=== PATIENT | female | born 1945 | race Two or more races ===

== ENCOUNTER 2022-08-17 17:51 | Emergency (ER) | payer OTHER ==
[~2022-08-17] VITALS: Ht 167.6 cm; Wt 77.1 kg
== END 2022-08-17 21:36 | disposition home or self-care (01) ==
LOC: ER 17:51
DX: S01.01XA Laceration without foreign body of scalp, initial encounter (principal); W18.49XA Other slipping, tripping and stumbling without falling, initial encounter; Y93.89 Activity, other specified; Y92.22 Religious institution as the place of occurrence of the external cause

== ENCOUNTER 2022-08-27 11:17 | Emergency (ER) | payer OTHER ==
[~2022-08-27] VITALS: Ht 167.6 cm; Wt 77.1 kg
[2022-08-27] MEDS ORDERED: LEVOTHYROXINE100 MCG (11:53)
[2022-08-27] MEDS ORDERED: HIBICLENS118 ML TOP (14:34)
== END 2022-08-27 14:50 ==
LOC: ER 11:17
DX: Z48.02 Encounter for removal of sutures (principal)

== ENCOUNTER 2024-01-25 10:30 | Inpatient (IN) | payer OTHER ==
[~2024-01-25] VITALS: Ht 167.6 cm; Wt 0.9 kg
[~2024-01-25 10:30] MED LIST: HIBICLENS118 ML TOP; LEVOTHYROXINE100 MCG
[2024-01-25] MEDS ORDERED: FOSAMAX70 MG (10:39)
--- NOTE | 2024-01-25 10:39 | NUR ---
SE RECIBE PTE ALERTA Y ORINTADA X3, PTE ES UN TRANSFER DEL [facility] Y FUE ACEPTADO POR EL DR DUNN. PTE LLEGA EN AMBULANCIA CON UN [place] Y CANALIZACION EN EL BRAZO IZQ ANGIO #18. SE LE MIDEN SV Y SE UBICA.
--- NOTE | 2024-01-25 10:50 | NUR ---
FEMINA EVALUADA POR DR BOB. SE ORIENTA A PTE SOBRE ORDENES MEDICAS Y REFIERE ENTENDER. SE COLECTAN MUESTRAS DE LABORATORIO BAJO MEDIDAS ASEPTICAS. SE NOTIFICA X-RAY Y SE REALIZA EKG.
[2024-01-25] MEDS ORDERED: MEPERIDINE HCL/PF 50 MG/ML VIAL IM ONE (11:00)
[2024-01-25] MEDS ORDERED: PROMETHAZINE HCL 25 MG/ML AMPUL IM ONE (11:00)
[2024-01-25] MEDS ORDERED: PROMETHAZINE HCL 25 MG/ML AMPUL ONE (11:01)
[2024-01-25 11:04] LABS: HEMATOCRIT 37.9 % (36.0-45.00); HEMOGLOBIN 12.8 g/dL (12.0-15.00); MEAN CELL VOLUME 88.5 fL (80.00-100.00); MEAN CORPUSCULAR HEMOGLOBIN 29.9 pg (27.00-32.0); MEAN CORPUSCULAR HGB CONC 33.8 g/dl (32.0-36.0); PLATELET COUNT 180 K/uL (150-450); RED BLOOD COUNT 4.28 M/uL (4.00-6.00); RED CELL DISTRIBUTION WIDTH 13.8 % (11.5-14.5)
[2024-01-25] MEDS ORDERED: ENOXAPARIN SODIUM 60 MG/0.6 ML SYRINGE SUBCUTANEO ONE ×2 (11:07→11:15)
[2024-01-25 11:25] LABS: INR 1.08; PARTIAL THROMBOPLASTIN TIME 29.3 SECONDS (22.0-34.0); PROTHROMBIN TIME 11.3 SECONDS (9.0-11.5)
[2024-01-25 11:33] LABS: CALCIUM 8.8 mg/dL (8.5-10.1); CREATININE SERUM 0.74 mg/dL (0.55-1.02); GFR 75.9; POTASSIUM 3.86 mEq/L (3.5-5.1)
[2024-01-25 11:34] LABS: PH,URINE 7.5 (5.0-8.0); URINE APPEARANCE Clear; URINE BILIRRUBIN Negative (NEGATIVE); URINE BLOOD NHT; URINE COLOR Yellow; URINE GLUCOSE Negative (NEGATIVE); URINE LEUKOCYTE Trace; URINE NITRATE Negative; URINE PROTEIN Negative (NEGATIVE); URINE UROBILINOGEN 0.2 E.U./dl
[2024-01-25 11:38] LABS: URINE BACTERIA 22.6 uL (0.0-1933); URINE EPITHELIAL CELLS 5.1 uL (0.0-38.8); URINE RBC 42.9 uL (0.0-20.8); URINE WBC 54.2 uL (0.0-23.2)
--- NOTE | 2024-01-25 15:32 | NUR ---
SE RECIBE PTE DEL TURNO ANTERIOR ALERTA Y ORIENTADA X3 EN CAMA CON BARANDAS ELEVADAS UBICADA EN SECCION K. PTE CONSULTADA CON MD DELACRUZ Y MONA. SE ORIENTA SOBRE CONTINUIDAD DE [facility].
[2024-01-25] MEDS ORDERED: OxyCODONE HCL/APAP UD (PERCOCET) PO ONE (18:30)
[2024-01-25] MEDS ORDERED: 0.9 % SODIUM CHLORIDE 1,000 ML IV SCH (18:30)
[2024-01-25] MEDS ORDERED: ONDANSETRON HCL 4 MG in 0.9 % SODIUM CHLORIDE 50 ML IV PRN (18:45)
[2024-01-25] MEDS ORDERED: ACETAMINOPHEN 500 MG GEL..CAP PO PRN (18:45)
[2024-01-25] MEDS ORDERED: OxyCODONE HCL/APAP UD (PERCOCET) PO PRN (18:45)
[2024-01-26] MEDS ORDERED: ENALAPRILAT DIHYDRATE 1.25 MG/ML VIAL IV SCH (07:18)
[2024-01-26] MEDS ORDERED: MORPHINE SULFATE 4 MG/ML CARTRIDGE IV PRN (07:30)
[2024-01-26] MEDS ORDERED: FAMOTIDINE/PF 20 MG in 0.9 % SODIUM CHLORIDE 8 ML IV PUSH SCH (09:00)
[2024-01-26] MEDS ORDERED: CEFAZOLIN SODIUM 1,000 MG VIAL IV ONE (09:15)
[2024-01-26] MEDS ORDERED: MEPERIDINE HCL/PF 50 MG/ML VIAL IM PRN (09:15)
[2024-01-26] MEDS ORDERED: 0.9 % SODIUM CHLORIDE 1,000 ML IV SCH (09:15)
[2024-01-26] MEDS ORDERED: PROMETHAZINE HCL 50 MG/ML AMPUL IM PRN (09:15)
[2024-01-26] MEDS ORDERED: OxyCODONE HCL/APAP UD (PERCOCET) PO PRN (09:15)
[2024-01-27] MEDS ORDERED: TRANEXAMIC ACID 100MG/1ML (1000MG) AMPUL IV ONE (07:09)
[2024-01-27] MEDS ORDERED: ISOPROPYL ALCOHOL 30 ML OUNCE TOP ONE (07:10)
[2024-01-27] MEDS ORDERED: OxyCODONE HCL 5 MG TABLET (ROXICODONE) PO PRN (09:30)
[2024-01-27] MEDS ORDERED: SODIUM CHLORIDE 0.45 % 1,000 ML IV SCH (09:30)
[2024-01-27] MEDS ORDERED: ONDANSETRON HCL 2 MG/ML VIAL IV PRN (09:30)
[2024-01-27] MEDS ORDERED: MORPHINE SULFATE 4 MG/ML CARTRIDGE IV PRN (09:30)
[2024-01-27] MEDS ORDERED: ACETAMINOPHEN 500 MG GEL..CAP PO SCH (12:00)
[2024-01-27] MEDS ORDERED: GABAPENTIN 300 MG CAPSULE PO SCH (17:00)
[2024-01-27] MEDS ORDERED: CEFAZOLIN SODIUM 1,000 MG VIAL IV SCH (17:00)
[2024-01-28 06:33] LABS: HEMATOCRIT 34.8 % (36.0-45.00); HEMOGLOBIN 12.1 g/dL (12.0-15.00); MEAN CELL VOLUME 87.7 fL (80.00-100.00); MEAN CORPUSCULAR HEMOGLOBIN 30.4 pg (27.00-32.0); MEAN CORPUSCULAR HGB CONC 34.7 g/dl (32.0-36.0); PLATELET COUNT 167 K/uL (150-450); RED BLOOD COUNT 3.97 M/uL (4.00-6.00); RED CELL DISTRIBUTION WIDTH 13.4 % (11.5-14.5)
[2024-01-28 07:28] LABS: ALBUMIN 2.6 gm/dL (3.4-5.0); BILIRUBIN TOTAL 0.69 mg/dL (0.3-1.2); CALCIUM 8.2 mg/dL (8.5-10.1); CREATININE SERUM 0.67 mg/dL (0.55-1.02); GFR 85.12; GLOBULINA 3.7 G/DL (2.4-3.5); POTASSIUM 4.51 mEq/L (3.5-5.1); TOTAL PROTEIN 6.3 gm/dL (6.4-8.2)
[2024-01-28] MEDS ORDERED: PERCOCET 5-3251 EACH PO (08:08)
[2024-01-28] MEDS ORDERED: ELIQUIS2.5 MG PO (08:08)
[2024-01-28] MEDS ORDERED: DUI500 PO (08:08)
[2024-01-28] MEDS ORDERED: APIXABAN 2.5 MG TABLET PO SCH (09:00)
[2024-01-28] MEDS ORDERED: SENNOSIDES 1 TAB TABLET PO SCH (09:00)
[2024-01-29] MEDS ORDERED: IRON FUM,PS/FOLIC ACID/VITC/B3 1 CAP CAPSULE PO SCH (09:00)
== END 2024-01-28 17:07 | DRG 481 ==
LOC: ER 10:30 → SURH 18:42
PROVIDERS: General Practice; Internal Medicine; ADMIT Orthopaedic Surgery; ATTEND Orthopaedic Surgery
PROC: 0QS736Z Reposition Left Upper Femur with Intramedullary Internal Fixation Device, Percutaneous Approach (ICD-10-PCS; principal; 2024-01-27 09:40)
DX: S72.142A Displaced intertrochanteric fracture of left femur, initial encounter for closed fracture (principal); M80.052A Age-related osteoporosis with current pathological fracture, left femur, initial encounter for fracture; M16.11 Unilateral primary osteoarthritis, right hip